=== PATIENT | male | born 1940 ===

== ENCOUNTER → 2016-11-30 18:41 | Outpatient (CLI) | payer MEDICARE ==
[2016-11-30 18:57] LABS: INR 1.87 (0.85-1.17); PROTIME 21.5 SECONDS (11.6-15.0)
== END | disposition home or self-care (01) ==
LOC: D.LABREF 18:41
PROVIDERS: Family Medicine
DX: I48.91 Unspecified atrial fibrillation (principal)

== ENCOUNTER → 2016-12-18 18:52 | Outpatient (CLI) | payer MEDICARE ==
[2016-12-18 19:37] LABS: INR 2.55 (0.85-1.17); PROTIME 27.6 SECONDS (11.6-15.0)
== END | disposition home or self-care (01) ==
LOC: D.LABREF 18:52
PROVIDERS: Family Medicine
DX: Z51.81 Encounter for therapeutic drug level monitoring (principal); Z79.01 Long term (current) use of anticoagulants

== ENCOUNTER → 2017-01-15 19:44 | Outpatient (CLI) | payer MEDICARE ==
[2017-01-15 20:39] LABS: INR 2.74 (0.85-1.17); PROTIME 29.2 SECONDS (11.6-15.0)
== END | disposition home or self-care (01) ==
LOC: D.LABREF 19:44
PROVIDERS: Family Medicine
DX: Z51.81 Encounter for therapeutic drug level monitoring (principal); Z79.01 Long term (current) use of anticoagulants

== ENCOUNTER → 2017-04-12 19:22 | Outpatient (CLI) | payer MEDICARE ==
[2017-04-12 19:54] LABS: INR 3.15 (0.85-1.17); PROTIME 32.7 SECONDS (11.6-15.0)
== END | disposition home or self-care (01) ==
LOC: D.LABREF 19:22
PROVIDERS: Family Medicine
DX: I48.91 Unspecified atrial fibrillation (principal)

== ENCOUNTER → 2017-05-01 12:14 | Outpatient (CLI) | payer MEDICARE ==
[2017-05-01 19:35] LABS: INR 1.8 (0.85-1.17); PROTIME 20.9 SECONDS (11.6-15.0)
== END | disposition home or self-care (01) ==
LOC: D.LABREF 12:14
PROVIDERS: Family Medicine
DX: I48.91 Unspecified atrial fibrillation (principal)

== ENCOUNTER → 2017-05-17 20:59 | Outpatient (CLI) | payer MEDICARE ==
[2017-05-17 21:43] LABS: INR 1.56 (0.85-1.17); PROTIME 18.6 SECONDS (11.6-15.0)
== END | disposition home or self-care (01) ==
LOC: D.LABREF 20:59
PROVIDERS: Family Medicine
DX: I48.91 Unspecified atrial fibrillation (principal)

== ENCOUNTER → 2017-06-04 20:55 | Outpatient (CLI) | payer MEDICARE ==
[2017-06-04 22:14] LABS: INR 2.39 (0.85-1.17); PROTIME 26.2 SECONDS (11.6-15.0)
== END | disposition home or self-care (01) ==
LOC: D.LABREF 20:55
PROVIDERS: Family Medicine
DX: I48.91 Unspecified atrial fibrillation (principal)

== ENCOUNTER → 2017-07-09 15:55 | Outpatient (CLI) | payer MEDICARE ==
[2017-07-09 19:34] LABS: INR 2.94 (0.85-1.17); PROTIME 30.9 SECONDS (11.6-15.0)
== END | disposition home or self-care (01) ==
LOC: D.LABREF 15:55
PROVIDERS: Family Medicine
DX: I48.91 Unspecified atrial fibrillation (principal)